=== PATIENT | male | born 1990 | race Caucasian/White ===

== ENCOUNTER 2017-05-25 09:40 | Outpatient (CLI) | payer OTHER ==
--- NOTE | 2017-05-25 15:36 | XRAY Report ---
DATE OF SERVICE: 05/25/2017 THREE VIEW LUMBAR SPINE: 05/25/2017 CLINICAL INDICATION: Pain. FINDINGS: AP, lateral, coned down views of the lumbar spine demonstrate normal height and alignment of the vertebral bodies. The disk spaces are preserved. There is no evidence of fracture or subluxation. The bowel gas pattern is normal. IMPRESSION: NORMAL LUMBAR SPINE. TD: 05/25/2017 16:35
== END 2017-05-25 09:41 | disposition home or self-care (01) ==
LOC: DI 09:40
PROVIDERS: ATTEND Nurse Practitioner Family
DX: M54.5 Low back pain (principal)
CPT/HCPCS: 72100

== ENCOUNTER 2017-12-15 22:57 | Emergency (ER) | payer OTHER ==
--- NOTE | 2017-12-16 02:11 | ED Physician Documentation ---
History of Present Illness - Stated complaint Stated Complaint: LT SHOULDER PAIN,DIZZINESS - Chief complaint Chief Complaint: General - History obtained from History obtained from: Patient - History of Present Illness Timing: How many days ago (2-3) Pain level now: 0 Improved by: no ameliorating factors Worsened by: no exacerbating factors - Additonal information Additional information: patient has multiple complaints, that have been happening individually and in combination for several days. he complains of episodic dizziness, feeling anxious, red in the face (per patient), insomnia x 2-3 nights, and left shoulder and left hip pain. he says the hip and shoulder pain are not new. he says he was recently prescribed to medications for anxiety. He can recall that one of them is named sertraline, but he cannot recall the name of the other medication. He says he has not yet taken either of the medications yet. Review of Systems Constitutional: reports: Reviewed and negative Cardiac: reports: Reviewed and negative Respiratory: reports: Reviewed and negative GI: reports: Reviewed and negative Musculoskeletal: reports: Joint pain (left shoulder, left hip) Neurologic: reports: Headache. denies: Generalized weakness, Focal weakness, Numbness, Head injury Psychiatric: reports: Anxiety, Insomnia. denies: Depressed, Suicidal, Hallucinations, Delusions PD PAST MEDICAL HISTORY - Past Medical History Past Medical History: No - Past Surgical History Past Surgical History: No - Present Medications Home Medications: Ambulatory Orders Medication Instructions Recorded Confirmed LORazepam [Lorazepam] 1 mg PO QPM PRN #20 tablet 12/16/17 - Allergies Allergies/Adverse Reactions: Allergies Allergy/AdvReac Type Severity Reaction Status Date / Time No Known Drug Allergies Allergy Verified 12/15/17 23:02 - Living Situation Living Arrangement: reports: At home PD ED PE NORMAL - Vitals Vital signs reviewed: Yes - General General: Alert and oriented X 3, No acute distress, Well developed/nourished - HEENT HEENT: PERRL, EOMI - Neck Neck: Thyroid normal - Cardiac Cardiac: RRR, No murmur - Respiratory Respiratory: No respiratory distress, Clear bilaterally - Abdomen Abdomen: Soft, Non tender - Extremities Extremities: No edema - Neuro Neuro: Alert and oriented X 3, executive secretary 2-12 intact, No motor deficit, No sensory deficit, Normal speech - Psych Psych: Normal mood, Normal affect Results - Vitals Vitals: Oxygen O2 Source Room air PD MEDICAL DECISION MAKING - ED course Complexity details: considered differential, d/w patient ED course: patient has an appointment with his primary care position in the morning, Hema says he is supposed to have blood work done later this morning in his doctors office as well. Patient appears to be a no distress, he is calm, cooperative, polite. He has an unremarkable physical exam. Options for testing and treatment were discussed, and he agrees with my recommendation, which is no testing at this time (as he is scheduled to see his doctor later this morning for blood tests), rx for lorazepam for anxiety and insomnia (to be used sparingly and only temporarily, rather than planning on using this for long-term treatment). - Sepsis Event Vital Signs: Oxygen O2 Source Room air Departure - Departure Disposition: 01 Home, Self Care Clinical Impression: Anxiety Condition: Good Instructions: ED Stress React, ED Insomnia Follow-Up: Fazal Mallory MD [Primary Care Provider] - (Today as scheduled) Prescriptions: LORazepam [Lorazepam] 1 mg PO QPM PRN #20 tablet PRN Reason: Insomnia Comments: I have written a prescription for lorazepam for you to help with sleep. This is a generic form of Ativan. If you already have a prescription for this type of medication (benzodiazepine), do not fill the prescription for the lorazepam. Examples of other medications in this class are alprazolam (Xanax) and diazepam (Valium). Discharge Date/Time: 12/16/17 02:46
[2017-12-16 02:46] VITALS: BP 154/103
== END 2017-12-16 02:46 | disposition home or self-care (01) ==
LOC: ED 22:57
DX: M25.512 Pain in left shoulder (principal); F41.9 Anxiety disorder, unspecified
CPT/HCPCS: 99283